=== PATIENT | female | born 1990 | race Caucasian/White ===

== ENCOUNTER 2022-10-18 18:42 | Observation (INO) | payer OTHER ==
[~2022-10-18 18:42] MED LIST: Iopamidol 300 61% 100 ML VIAL FS ONE
[2022-10-18] MEDS ORDERED: Ondansetron PF 4 MG/2 ML Vial ONE (19:20)
[2022-10-18 19:40] LABS: #Basophils 0.1 10x3/uL (0.0-0.2); #Monocytes 1.1 10x3/uL (0.0-1.1); %Basophils 0.5 % (0.0-2.0); %Eosinophils 0.1 % (0.0-6.0); %Lymphocytes 24.2 % (18.0-47.0); %Monocytes 9.9 % (0.0-10.0); %Neutrophils 64.8 % (40.0-75.0); Hemoglobin 14.8 g/dL (12.0-15.5); Mean Corpuscular HGB CONC 34.7 g/dL (32.0-36.0); Mean Corpuscular Volume 95.1 fl (81.6-98.3); Mean Platelet Volume 9.7 fl (7.4-10.4); Platelet Count 443 10x3/uL (150-450); RBC Distribution Width 12.3 % (11.5-14.5); Red Blood Cell (RBC) Count 4.49 10x6/uL (3.90-5.03); White Blood Cell (WBC) Count 10.7 10x3/uL (3.5-10.5)
[2022-10-18 19:45] LABS: BHCG - Serum Negative (NEGATIVE); Pregs Control Background? CLEAR/WHITE (CLR/WHITE); Pregs Control Bar Appear? YES (CONTROL BAR)
[2022-10-18 19:50] LABS: ALT (SGPT) 10 U/L (8-55); AST (SGOT) 19 U/L (5-34); Albumin 5.4 g/dL (3.5-5.0); Alkaline Phosphatase 42 U/L (40-110); Anion Gap 26 mmol/L (10-20); BUN (Urea Nitrogen) 17 mg/dL (7.0-18.7); Calc. Creatinine Clearance 0 mL/min (70-130); Calcium 10.5 mg/dL (7.8-10.44); Carbon Dioxide 17 mmol/L (22-29); Chloride 97 mmol/L (98-107); Estimated GFR 85; Globulin 3.3 g/dL (2.4-3.5); Glucose 104 mg/dL (70-105); Lipase 19 U/L (8-78); Potassium 3.7 mmol/L (3.5-5.1); Protein, Total 8.7 g/dL (6.0-8.3); Sodium 136 mmol/L (136-145)
[2022-10-18 19:51] LABS: Acetaminophen Less than 10.0 mcg/mL (10.0-30.0); Alcohol Less than 10 mg/dL (Less than 10); Magnesium 1.7 mg/dL (1.6-2.6); Salicylate Less than 8.0 mg/dL (15.0-30.0)
[2022-10-18] MEDS ORDERED: hydrOXYzine 25 MG TAB ONE (20:22)
[2022-10-18] MEDS ORDERED: Ketorolac Tromethamine 30 MG/ML VIAL ONE (20:22)
[2022-10-18] MEDS ORDERED: Metoclopramide HCl 10 MG/2 ML VIAL ONE (20:22)
[2022-10-18 20:34] LABS: Bilirubin Neg (Negative); Blood, Urine 250 (Negative); Clarity Cloudy (Clear); Glucose, Urine (Dipstick) Normal (Negative); Ketone, Urine 150 mg/dL (Negative); Leukocyte 25 (Negative); Nitrite Negative (Negative); Protein, Urine (Dipstick) 30 mg/dl (Neg-Trace)
[2022-10-18 20:41] LABS: Bacteria/HPF 2+ HPF (None Seen); Mucous/LPF Rare LPF (<2+)
[2022-10-18 20:42] LABS: Amphetamine Not Detected (NotDetected); Barbiturates Screen Not Detected (NotDetected); Benzodiazepine Screen Not Detected (NotDetected); Cocaine Metabolite Screen Not Detected (NotDetected); Methadone Not Detected (NotDetected); Methamphetamine Not Detected (NotDetected); Opiate Screen Not Detected (NotDetected); Oxycodone Screen Not Detected (NotDetected); Phencyclidine (PCP) Not Detected (NotDetected); RBC/HPF 21-50 HPF (0-3); THC/Cannabinoid Screen Detected (NotDetected); Tricyclic Screen Not Detected (NotDetected)
[2022-10-18] MEDS ORDERED: Haloperidol Lactate 5 MG/ML VIAL ONE (21:06)
[2022-10-18 22:04] LABS: SARS-CoV-2 NAA Rapid Test Not Detected (NotDetected)
[2022-10-18] MEDS ORDERED: Midazolam HCl 2 mg/2 ml Vial ONE (22:22)
[2022-10-18] MEDS ORDERED: Guaifenesin DM 100-10/5 ML UDCUP PO PRN (22:27)
[2022-10-18] MEDS ORDERED: Ondansetron PF 4 MG/2 ML Vial IVP PRN (22:27)
[2022-10-18] MEDS ORDERED: Calcium Carbonate 500 MG ChewTAB PO PRN (22:27)
[2022-10-18] MEDS ORDERED: Acetaminophen 325 MG TAB PO PRN (22:27)
[2022-10-18] MEDS ORDERED: Promethazine HCl 12.5 MG in Sodium Chloride 0.9% 50 ML IVPB PRN (22:31)
[2022-10-18 22:58] LABS: Lactic Acid 1.2 mmol/L (0.5-2.2)
[2022-10-18] MEDS ORDERED: Morphine 2 MG/ML VIAL SLOW IVP PRN (22:59)
[2022-10-18] MEDS ORDERED: Famotidine/PF 20 mg/2ml Vial SLOW IVP SCH (23:00)
[2022-10-18] MEDS ORDERED: Magnesium Sulfate/D5W 1 GM/100 ML BAG IVPB SCH (23:00)
[2022-10-18] MEDS ORDERED: Famotidine/PF 20 mg/2ml Vial ONE (23:41)
[2022-10-18] MEDS: Lactated Ringer's 1,000 ML IV SCH (23:55)
[2022-10-19] MEDS ORDERED: Lorazepam 2 MG/ML VIAL ONE ×2 (00:53→06:36)
[2022-10-19] MEDS: Lorazepam 2 MG/ML VIAL SLOW IVP SCH ×2 (01:01→06:38)
[2022-10-19 03:59] LABS: #Monocytes 0.8 10x3/uL (0.0-1.1); #Neutrophils 4.3 10x3/uL (1.5-8.4); %Basophils 0.5 % (0.0-2.0); %Lymphocytes 29.9 % (18.0-47.0); %Monocytes 11.4 % (0.0-10.0); %Neutrophils 57.9 % (40.0-75.0); Hemoglobin 11.1 g/dL (12.0-15.5); Mean Corpuscular Hemoglobin 32.8 pg (27.0-33.0); Mean Corpuscular Volume 96.4 fl (81.6-98.3); Mean Platelet Volume 9.1 fl (7.4-10.4); Platelet Count 279 10x3/uL (150-450); RBC Distribution Width 12.5 % (11.5-14.5); Red Blood Cell (RBC) Count 3.38 10x6/uL (3.90-5.03); White Blood Cell (WBC) Count 7.4 10x3/uL (3.5-10.5)
[2022-10-19 04:18] LABS: Anion Gap 12 mmol/L (10-20); BUN (Urea Nitrogen) 12 mg/dL (7.0-18.7); Calc. Creatinine Clearance 0 mL/min (70-130); Calcium 8.2 mg/dL (7.8-10.44); Carbon Dioxide 21 mmol/L (22-29); Chloride 108 mmol/L (98-107); Estimated GFR 120; Glucose 77 mg/dL (70-105); Magnesium 2.2 mg/dL (1.6-2.6); Potassium 3.4 mmol/L (3.5-5.1); Sodium 138 mmol/L (136-145)
[2022-10-19 04:36] LABS: Platelet Morphology Comment Appears Adequate; RBC Morphology Normal
[2022-10-19] MEDS ORDERED: Potassium Chloride 20 MEQ TAB PO SCH (06:30)
[2022-10-19] MEDS ORDERED: Potassium Chloride 20 MEQ TAB ONE (06:32)
[2022-10-19] MEDS ORDERED: Escitalopram Oxalate 10 mg Tablet PO SCH (09:00)
[2022-10-19] MEDS ORDERED: Propranolol 40 MG TAB PO SCH (09:00)
[2022-10-19] MEDS ORDERED: Famotidine/PF 20 mg/2ml Vial SLOW IVP SCH (09:00)
[2022-10-19] MEDS ORDERED: Ondansetron PF 4 MG/2 ML Vial ONE (09:05)
[2022-10-19] MEDS ORDERED: Famotidine/PF 20 mg/2ml Vial ONE (09:06)
[2022-10-19] MEDS: Lactated Ringer's 1,000 ML IV SCH (09:12)
[2022-10-19 11:18] VITALS: BP 102/61
== END 2022-10-19 12:54 | disposition home or self-care (01) ==
LOC: CSHERS 18:42 → CSHERHOLD 22:42 → INTOOBSV 22:42
PROVIDERS: ADMIT Student in an Organized Health Care Education/Training Program; ATTEND Family Medicine
DX: R65.10 Systemic inflammatory response syndrome (SIRS) of non-infectious origin without acute organ dysfunction (principal); E87.20 Acidosis, unspecified; E86.0 Dehydration; R00.0 Tachycardia, unspecified; N83.209 Unspecified ovarian cyst, unspecified side; F12.10 Cannabis abuse, uncomplicated; F90.9 Attention-deficit hyperactivity disorder, unspecified type; F41.9 Anxiety disorder, unspecified; Z20.822 Contact with and (suspected) exposure to COVID-19; R11.2 Nausea with vomiting, unspecified; Z90.49 Acquired absence of other specified parts of digestive tract; F17.290 Nicotine dependence, other tobacco product, uncomplicated; Z91.030 Bee allergy status; Z79.899 Other long term (current) drug therapy
CPT/HCPCS: 36415; 71045; 74177; 76856; 80048; 80053; 80306; 80307; 81003; 81015; 83605; 83690; 83735; 84443; 84484; 84703; 85025; 86140; 87040; 87086; 93005; 96361; 96365; 96375; 96376; G0378; J1630; J1885; J2060; J2250; J2405; J2765; J3475; J7120; Q9967; S0028